=== PATIENT | female | born 1955 | race Caucasian/White ===

== ENCOUNTER 2018-07-29 08:00 | Outpatient (CLI) | payer BC, OTHER ==
[2018-07-29] MEDS ORDERED: NONE PER PT (11:29)
[2018-07-29 11:48] LABS: BASOPHILS # (AUTO) 0.03 x10^3/uL (0-0.1); BASOPHILS % (AUTO) 0 % (0-1); EOSINOPHILS # (AUTO) 0.04 x10^3/uL (0-0.4); EOSINOPHILS % (AUTO) 1 % (1-7); LYMPHOCYTES % (AUTO) 19 % (22-44); MD NO; MEAN CORPUSCULAR HEMOGLOBIN 33.2 pg (27.0-34.8); MEAN CORPUSCULAR HGB CONC 34.6 g/dL (32.4-35.8); MEAN PLATELET VOLUME 7.5 fL (7.4-10.4); MONOCYTES # (AUTO) 0.44 x10^3/uL (0.2-0.8); MONOCYTES % (AUTO) 6 % (2-9); NEUTROPHILS % (AUTO) 75 % (42-75); PLATELET COUNT 257 x10^3/uL (130-400); RED BLOOD COUNT 4.46 x10^6/uL (3.82-5.3); RED CELL DISTRIBUTION WIDTH 13.3 % (9.6-15.2)
[2018-07-29 12:01] LABS: INTERNATIONAL NORMALIZED RATIO 1.05 (0.93-1.1); PROTHROMBIN TIME 11.1 Seconds (9.6-11.5)
[2018-07-29 12:02] LABS: CHLORIDE 106 mmol/L (98-107)
[2018-07-29 12:11] LABS: ALANINE AMINOTRANSFERASE 27 U/L (12-78); ALKALINE PHOSPHATASE 77 U/L (45-117); ANION GAP 6 mmol/L (5-15); BILIRUBIN,TOTAL 0.9 mg/dL (0.2-1.0); CALCIUM 9.9 mg/dL (8.5-10.1); CREATININE 0.75 mg/dL (0.55-1.02)
== END 2018-08-12 13:23 | disposition home or self-care (01) ==
LOC: STAR 08:00
PROVIDERS: ATTEND Specialist
DX: Z01.818 Encounter for other preprocedural examination (principal); C54.1 Malignant neoplasm of endometrium
CPT/HCPCS: 36415; 71046; 80053; 85025; 85610; 85730; 86304; 93005

== ENCOUNTER 2018-08-11 08:33 | Day surgery (SDC) | payer BC, OTHER ==
[~2018-08-11] VITALS: Ht 162.6 cm; Wt 55.4 kg
[~2018-08-11 08:33] MED LIST: BUPIVACAINE 0.25% ONE; CEFAZOLIN 1,000 MG ONE; DEXAMETHASONE 4 MG/ML, 1ML ONE; FENTANYL PF 250 MCG/5ML ONE; GLYCOPYRROLATE 0.2MG/1ML, 5ML ONE; MIDAZOLAM 1 MG/ML, 2ML ONE; NEOSTIGMINE 1 MG/ML, 10ML ONE; NONE PER PT; ONDANSETRON 2MG/ML, 2ML ONE; PROPOFOL 10 MG/ML, 20ML ONE; ROCURONIUM 10MG/ML,5ML ONE; SUCCINYLCHOLINE 20 MG/ML, 10ML ONE
[2018-08-11] MEDS ORDERED: LACTATED RINGERS 1,000 ML IV SCH (09:16)
[2018-08-11 09:18] VITALS: BP 129/77
[2018-08-11] MEDS ORDERED: ACETAMINOPHEN 500 MG TABLET ONE (09:25)
[2018-08-11] MEDS ORDERED: GABAPENTIN 300 MG CAPSULE ONE (09:26)
[2018-08-11] MEDS ORDERED: ACETAMINOPHEN 500 MG TABLET PO ONE (09:30)
[2018-08-11] MEDS ORDERED: GABAPENTIN 300 MG CAPSULE PO ONE (09:30)
[2018-08-11] MEDS ORDERED: INDOCYANINE GREEN 25 MG VIAL ONE (09:53)
[2018-08-11] MEDS ORDERED: ONDANSETRON 2MG/ML, 2ML IV PRN (10:00)
[2018-08-11] MEDS ORDERED: PROMETHAZINE 25 MG SUPP PR PRN (10:00)
[2018-08-11] MEDS ORDERED: PROMETHAZINE 25 MG/ML, 1ML IV PRN (10:00)
[2018-08-11] MEDS ORDERED: hydrALAzine 20 MG/ML, 1ML IV PRN (10:00)
[2018-08-11] MEDS ORDERED: MEPERIDINE/PF 25MG/0.5ML IVPush PRN (10:00)
[2018-08-11] MEDS ORDERED: PROMETHAZINE 25 MG/ML, 1ML IM PRN ×2 (10:00)
[2018-08-11] MEDS ORDERED: ONDANSETRON ODT 8 MG PO PRN (10:00)
[2018-08-11] MEDS ORDERED: LABETALOL 5MG/ML, 20ML IV PRN (10:00)
[2018-08-11] MEDS ORDERED: PROMETHAZINE 12.5 MG SUPP PR PRN (10:00)
[2018-08-11] MEDS ORDERED: OXYcodone 5 MG/5 ML ORAL.SOL UDC PO PRN (10:00)
[2018-08-11] MEDS ORDERED: HYDROmorphone 2 MG/ML, 1ML IVPush PRN (10:00)
[2018-08-11] MEDS ORDERED: MORPHINE SULFATE 4 MG/ML, 1ML IVPush PRN (10:00)
[2018-08-11] MEDS ORDERED: FENTANYL PF 250 MCG/5ML ONE (10:50)
[2018-08-11] MEDS ORDERED: KETOROLAC 30 MG/1 ML ONE (11:43)
[2018-08-11] MEDS ORDERED: FENTANYL PF 100 MCG/2ML ONE (12:18)
[2018-08-11] MEDS ORDERED: OXYcodone 5 MG/5 ML ORAL.SOL UDC ONE (12:18)
[2018-08-11] MEDS: FENTANYL PF 100 MCG/2ML IV PRN ×3 (12:20→13:00)
== END 2018-08-11 16:45 | disposition home or self-care (01) ==
LOC: OUT 08:33
PROVIDERS: ATTEND Specialist
DX: C53.0 Malignant neoplasm of endocervix (principal); C56.2 Malignant neoplasm of left ovary; C56.1 Malignant neoplasm of right ovary; F17.210 Nicotine dependence, cigarettes, uncomplicated; N95.0 Postmenopausal bleeding; Z90.49 Acquired absence of other specified parts of digestive tract; Z85.038 Personal history of other malignant neoplasm of large intestine; Z98.890 Other specified postprocedural states; Z72.89 Other problems related to lifestyle; Z79.899 Other long term (current) drug therapy; Z87.442 Personal history of urinary calculi
CPT/HCPCS: 36415; 38510; 38900; 58552; 86850; 86900; 88305; 88307; 88331; J0690; J1100; J1885; J2250; J2405; J2704; J2710; J3010; J3490; J7120; S2900; J0330

== ENCOUNTER 2020-02-29 10:56 | Outpatient (CLI) | payer BC, OTHER ==
[~2020-02-29 10:56] MED LIST changes: -BUPIVACAINE 0.25% ONE; -CEFAZOLIN 1,000 MG ONE; -DEXAMETHASONE 4 MG/ML, 1ML ONE; -FENTANYL PF 250 MCG/5ML ONE; -GLYCOPYRROLATE 0.2MG/1ML, 5ML ONE; -MIDAZOLAM 1 MG/ML, 2ML ONE; -NEOSTIGMINE 1 MG/ML, 10ML ONE; -ONDANSETRON 2MG/ML, 2ML ONE; -PROPOFOL 10 MG/ML, 20ML ONE; -ROCURONIUM 10MG/ML,5ML ONE; -SUCCINYLCHOLINE 20 MG/ML, 10ML ONE
== END 2020-02-29 23:59 | disposition home or self-care (01) ==
LOC: ROC 10:56
PROVIDERS: ATTEND Radiology Radiation Oncology
DX: C79.89 Secondary malignant neoplasm of other specified sites (principal); F12.90 Cannabis use, unspecified, uncomplicated; F17.210 Nicotine dependence, cigarettes, uncomplicated; Z79.899 Other long term (current) drug therapy; Z85.038 Personal history of other malignant neoplasm of large intestine
CPT/HCPCS: 99214; G0463

== ENCOUNTER 2020-03-09 14:09 | Day surgery (SDC) | payer BC, OTHER ==
[~2020-03-09] VITALS: Ht 160 cm; Wt 44.8 kg
[2020-03-09] MEDS ORDERED: LACTATED RINGERS 1,000 ML IV SCH (14:51)
[2020-03-09 14:57] VITALS: BP 145/77
[2020-03-09] MEDS ORDERED: CHLORHEXIDINE 15 ML UDC MM ONE (15:00)
[2020-03-09] MEDS ORDERED: CHLORHEXIDINE 15 ML UDC ONE (15:07)
[2020-03-09] MEDS ORDERED: OXYC5CAP2 PO (15:08)
[2020-03-09] MEDS ORDERED: MULT-826 PO (15:08)
[2020-03-09] MEDS ORDERED: FENTANYL PF 100 MCG/2ML ONE ×2 (17:35→19:57)
[2020-03-09] MEDS ORDERED: PROMETHAZINE 25 MG/ML, 1ML IVPush PRN (18:30)
[2020-03-09] MEDS ORDERED: ALBUTEROL SULFATE 2.5 MG/3 ML NPPB PRN (18:30)
[2020-03-09] MEDS ORDERED: OXYcodone 5 MG/5 ML ORAL.SOL UDC PO PRN (18:30)
[2020-03-09] MEDS ORDERED: MIDAZOLAM 1 MG/ML, 2ML IV PRN (18:30)
[2020-03-09] MEDS ORDERED: LABETALOL 5MG/ML, 20ML IV PRN (18:30)
[2020-03-09] MEDS ORDERED: hydrALAzine 20 MG/ML, 1ML IV PRN (18:30)
[2020-03-09] MEDS ORDERED: ACETAMINOPHEN 325 MG TABLET PO PRN (18:30)
[2020-03-09] MEDS ORDERED: FENTANYL PF 100 MCG/2ML IV PRN (18:30)
[2020-03-09] MEDS ORDERED: HYDROmorphone 1 MG/ML, 1ML INJ IVPush PRN (18:30)
[2020-03-09] MEDS ORDERED: MIDAZOLAM 1 MG/ML, 2ML ONE (19:03)
[2020-03-09] MEDS ORDERED: ONDANSETRON 2MG/ML, 2ML ONE (19:18)
[2020-03-09] MEDS ORDERED: PROPOFOL 10 MG/ML, 20ML ONE (19:18)
[2020-03-09] MEDS ORDERED: DEXAMETHASONE 4 MG/ML, 1ML ONE (19:18)
[2020-03-09] MEDS ORDERED: CEFAZOLIN 1,000 MG ONE (19:18)
[2020-03-09] MEDS ORDERED: LIDOCAINE-MPF 2% ,5ML ONE (19:18)
[2020-03-09] MEDS ORDERED: OMNIPAQUE 350 MG/ML, 50 ML BOTTLE ONE (19:31)
[2020-03-09] MEDS ORDERED: OXYcodone 5 MG/5 ML ORAL.SOL UDC ONE (19:57)
[2020-03-09] MEDS ORDERED: ACETAMINOPHEN 650 MG/20.3 ML UDC ONE (19:57)
== END 2020-03-09 21:45 | disposition home or self-care (01) ==
LOC: OR 14:09
PROVIDERS: ATTEND Urology
DX: N13.1 Hydronephrosis with ureteral stricture, not elsewhere classified (principal); Z11.59 Encounter for screening for other viral diseases; F17.210 Nicotine dependence, cigarettes, uncomplicated; F12.90 Cannabis use, unspecified, uncomplicated; Z72.89 Other problems related to lifestyle; Z79.899 Other long term (current) drug therapy; Z85.038 Personal history of other malignant neoplasm of large intestine
CPT/HCPCS: 52332; 74420; 87635; 93005; C1758; C1769; C2617; J0690; J1100; J2250; J2405; J2704; J7120; Q9967; J3010

== ENCOUNTER 2020-04-08 07:20 | Outpatient (CLI) | payer BC, OTHER ==
[~2020-04-08 07:20] MED LIST changes: +MULT-826 PO; +OXYC5CAP2 PO
== END 2020-04-08 23:59 | disposition home or self-care (01) ==
LOC: ROC 07:20
PROVIDERS: ATTEND Radiology Radiation Oncology
DX: C79.89 Secondary malignant neoplasm of other specified sites (principal); Z87.891 Personal history of nicotine dependence; Z79.899 Other long term (current) drug therapy; Z85.038 Personal history of other malignant neoplasm of large intestine
CPT/HCPCS: 99212; G0463

== ENCOUNTER → 2021-01-26 | Outpatient (CLI) | payer BC, OTHER ==
[~2021-01-26] MED LIST changes: +BISA5TAB5 PO; +DOCU-183 PO; +MORP-52 PO; +MULT-449 PO; +PROC5TAB40 PO
[2021-01-26 14:26] LABS: BASOPHILS % (AUTO) 0 % (0-1); EOSINOPHILS % (AUTO) 1 % (1-7); LYMPHOCYTES % (AUTO) 25 % (22-44); MEAN CORPUSCULAR HEMOGLOBIN 30.9 pg (27.0-34.8); MEAN CORPUSCULAR HGB CONC 34.4 g/dL (32.4-35.8); MONOCYTES % (AUTO) 8 % (2-9); NEUTROPHILS % (AUTO) 65 % (42-75); PLATELET COUNT 266 x10^3/uL (130-400); RED BLOOD COUNT 4.41 x10^6/uL (3.82-5.3); RED CELL DISTRIBUTION WIDTH 15.9 % (9.6-15.2)
[2021-01-26 14:28] LABS: MD NO
[2021-01-26 14:34] LABS: ANION GAP 5 mmol/L (5-15); CALCIUM 9.6 mg/dL (8.5-10.1); CHLORIDE 104 mmol/L (98-107); CREATININE 0.53 mg/dL (0.55-1.02)
[2021-01-26 14:37] LABS: MICROSCOPIC INDICATED
[2021-01-26 14:40] LABS: INTERNATIONAL NORMALIZED RATIO 1.02 (0.93-1.1); PROTHROMBIN TIME 10.9 Seconds (9.6-11.5)
== END | disposition home or self-care (01) ==
LOC: STAR 12:36
PROVIDERS: ATTEND Urology
DX: Z01.818 Encounter for other preprocedural examination (principal); N13.1 Hydronephrosis with ureteral stricture, not elsewhere classified; I44.4 Left anterior fascicular block; Z20.822 Contact with and (suspected) exposure to COVID-19
CPT/HCPCS: 36415; 80048; 81001; 85025; 85610; 85730; 87086; 93005; U0003; U0005; 87077

== ENCOUNTER 2021-02-01 07:55 | Day surgery (SDC) | payer BC, OTHER ==
[~2021-02-01] VITALS: Ht 160 cm; Wt 37.8 kg
[~2021-02-01 07:55] MED LIST changes: +MIDAZOLAM 1 MG/ML, 2ML ONE
[2021-02-01] MEDS ORDERED: PROPOFOL 10 MG/ML, 20ML ONE (07:56)
[2021-02-01] MEDS ORDERED: FENTANYL PF 100 MCG/2ML ONE (07:56)
[2021-02-01] MEDS ORDERED: CEFAZOLIN 1,000 MG ONE ×2 (07:57)
[2021-02-01] MEDS ORDERED: ONDANSETRON 2MG/ML, 2ML ONE (07:57)
[2021-02-01] MEDS ORDERED: LIDOCAINE-MPF 2% ,5ML ONE (07:57)
[2021-02-01] MEDS ORDERED: KETOROLAC 30 MG/1 ML IV PRN (08:30)
[2021-02-01] MEDS ORDERED: ONDANSETRON 2MG/ML, 2ML IVPush PRN (08:30)
[2021-02-01] MEDS ORDERED: DIPHENHYDRAMINE 50 MG/ML, 1ML IVPush PRN (08:30)
[2021-02-01] MEDS ORDERED: FENTANYL PF 100 MCG/2ML IV PRN (08:30)
[2021-02-01] MEDS ORDERED: HYDROmorphone 1 MG/ML, 1ML INJ IVPush PRN (08:30)
[2021-02-01] MEDS ORDERED: ACETAMINOPHEN 325 MG TABLET PO PRN (08:30)
[2021-02-01] MEDS ORDERED: OXYcodone 5 MG/5 ML ORAL.SOL UDC PO PRN (08:30)
[2021-02-01] MEDS ORDERED: MEPERIDINE/PF 25MG/0.5ML IVPush PRN (08:30)
[2021-02-01 08:44] VITALS: BP 98/63
[2021-02-01] MEDS ORDERED: CHLORHEXIDINE 15 ML UDC ONE (08:49)
[2021-02-01] MEDS ORDERED: LACTATED RINGERS 1,000 ML IV SCH (09:00)
[2021-02-01] MEDS ORDERED: CHLORHEXIDINE 15 ML UDC PO ONE (09:00)
[2021-02-01] MEDS ORDERED: OMNIPAQUE 350 MG/ML, 50 ML BOTTLE ONE (09:03)
[2021-02-01] MEDS ORDERED: OXYcodone 5 MG/5 ML ORAL.SOL UDC ONE (10:12)
[2021-02-01] MEDS ORDERED: PHENAZOPYRIDINE 200 MG TABLET ONE (10:25)
[2021-02-01] MEDS ORDERED: PHENAZOPYRIDINE 200 MG TABLET PO ONE (10:30)
== END 2021-02-01 11:35 | disposition home or self-care (01) ==
LOC: OUT 07:55
PROVIDERS: ATTEND Urology
DX: N13.1 Hydronephrosis with ureteral stricture, not elsewhere classified (principal); C18.9 Malignant neoplasm of colon, unspecified; F17.210 Nicotine dependence, cigarettes, uncomplicated; Z79.1 Long term (current) use of non-steroidal anti-inflammatories (NSAID); Z79.899 Other long term (current) drug therapy; Z98.890 Other specified postprocedural states
CPT/HCPCS: 52332; 74420; C1758; C1769; C2617; J0690; J2250; J2405; J2704; J3010; J7120; Q9967